=== PATIENT | female | born 1965 | race Caucasian/White ===

== ENCOUNTER → 2024-04-06 10:58 | Outpatient (REF) | payer OTHER, SELFPAY | LOC: HWRAD 10:58 | PROVIDERS: ATTENDING PHYSICIAN Family Medicine | DX: N95.1 Menopausal and female climacteric states (principal) | CPT/HCPCS: 77080 ==

== ENCOUNTER → 2024-08-23 15:40 | Outpatient (REF) | payer OTHER, SELFPAY | LOC: MRI 3T 15:40 | PROVIDERS: ATTENDING PHYSICIAN Family Medicine | DX: M79.671 Pain in right foot (principal) | CPT/HCPCS: 73720; A9575 ==

== ENCOUNTER → 2024-09-18 09:53 | Outpatient (REF) | payer OTHER, SELFPAY | LOC: DHSLP 09:53 | PROVIDERS: ATTENDING PHYSICIAN Internal Medicine; FAMILY PHYSICIAN Family Medicine | DX: G47.00 Insomnia, unspecified (principal); G47.8 Other sleep disorders; R06.83 Snoring | CPT/HCPCS: 95800 ==

== ENCOUNTER → 2025-03-06 13:13 | Outpatient (REF) | payer OTHER, SELFPAY | LOC: HWRAD 13:13 | PROVIDERS: ATTENDING PHYSICIAN Obstetrics & Gynecology; FAMILY PHYSICIAN Family Medicine | DX: N95.0 Postmenopausal bleeding (principal) | CPT/HCPCS: 76830; 76856 ==

== ENCOUNTER 2025-04-10 06:05 | Day surgery (SDC) | payer OTHER, SELFPAY ==
[2025-04-02 11:16] LABS: Hematocrit 38.3 % (37.0-47.0); Hemoglobin 13.2 g/dL (12.0-16.0); Mean Corp Hgb Conc. 34.5 g/dL (33.0-37.0); Mean Corpuscular Volume 89.5 fL (81.0-99.0); Nucleated Red Blood Cells % 0 %; Platelet Count 203 10^3/uL (130-400); Red Cell Dist. Width 12.0 % (11.5-14.5)
[2025-04-02 13:17] LABS: Blood Urea Nitrogen 17 mg/dl (7-17); Calcium 9.7 mg/dl (8.4-10.2); Carbon Dioxide 27 mmol/L (22-30); Chloride 106 mmol/L (98-107); Glucose 91 mg/dl (70-99); Potassium 4.7 mmol/L (3.5-5.1); Sodium 142 mmol/L (135-145); eGFR > 60.00
[2025-04-02 13:47] VITALS: BMI 25.9
[2025-04-10] VITALS (7 sets, daily range): BP systolic 100–132; BP diastolic 64–78; BMI 25.9
[2025-04-10] MEDS: TYLENOL 1000 MG PO (08:15)
[2025-04-10] MEDS: NEURONTIN 100 MG PO (08:15)
[2025-04-10] MEDS: NORMOSOL-R/PLASMALYTE-A 1000 IV (08:17)
--- NOTE | 2025-04-10 11:16 | W.IMMPOSTOP ---
Surgical Immed Post Op Note
-
Primary Surgeon: Melisa Vickers DO
Assisting Surgeon: none
Pre-op Diagnosis: Postmenopausal bleeding
Post-op Diagnosis: same
Procedure Performed: hysteroscopy D&C
Anesthesia Type: general LMA Dr Carrillo
Specimen / Cultures: 1. enodcervical curettings 2. endometrial curettings
Estimated Blood Loss: 10mL
Complications: small superficial abrasion of cervix from tenaculum which was sutured with figure of eight of 3-0 vicryl suture for hemostasis.
Operative Findings: Uterus sounded to approx 9.0 cm, bilateral tubal ostia seen. No evidence of polyp or mass. Normal atrophic appearing lining. Cervix ix located very anteriorly and positioned behind pubic bone.
Counts correct times 2.
== END 2025-04-10 12:45 | disposition home or self-care (01) ==
LOC: SDS 06:05
PROVIDERS: ATTENDING PHYSICIAN Obstetrics & Gynecology; FAMILY PHYSICIAN Family Medicine
DX: N95.0 Postmenopausal bleeding (principal)
CPT/HCPCS: 58558; 36415; 80048; 85025; 86850; 86900; 86901; 88305; 93005

== ENCOUNTER 2025-05-28 06:24 | Day surgery (SDC) | payer OTHER, SELFPAY | END 2025-05-28 12:16 | disposition home or self-care (01) | LOC: GI 06:24 | PROVIDERS: ATTENDING PHYSICIAN Internal Medicine; FAMILY PHYSICIAN Family Medicine | DX: Z12.11 Encounter for screening for malignant neoplasm of colon (principal); K64.8 Other hemorrhoids; K57.30 Diverticulosis of large intestine without perforation or abscess without bleeding; D12.0 Benign neoplasm of cecum; K62.1 Rectal polyp | CPT/HCPCS: 45385; 88305 ==

== ENCOUNTER → 2025-06-04 18:19 | Outpatient (REF) | payer OTHER, SELFPAY | LOC: MRI 18:19 | PROVIDERS: ATTENDING PHYSICIAN Obstetrics & Gynecology; FAMILY PHYSICIAN Family Medicine | DX: N95.0 Postmenopausal bleeding (principal) | CPT/HCPCS: 72197; A9575 ==

== ENCOUNTER 2025-08-16 06:27 | Day surgery (SDC) | payer OTHER, SELFPAY ==
[2025-08-06 10:49] LABS: Hematocrit 38.6 % (37.0-47.0); Hemoglobin 13.5 g/dL (12.0-16.0); Mean Corp Hgb Conc. 35.0 g/dL (33.0-37.0); Mean Corpuscular Volume 88.7 fL (81.0-99.0); Nucleated Red Blood Cells % 0 %; Platelet Count 222 10^3/uL (130-400); Red Cell Dist. Width 12.0 % (11.5-14.5)
[2025-08-06 13:09] LABS: Blood Urea Nitrogen 14 mg/dl (7-17); Calcium 9.6 mg/dl (8.4-10.2); Carbon Dioxide 30 mmol/L (22-30); Chloride 104 mmol/L (98-107); Glucose 99 mg/dl (70-99); Potassium 4.7 mmol/L (3.5-5.1); Sodium 139 mmol/L (135-145); eGFR > 60.00
[2025-08-06 13:24] VITALS: BMI 27.5
[2025-08-16] VITALS (20 sets, daily range): BP systolic 93–123; BP diastolic 54–86; BMI 27.5
[2025-08-16] MEDS: TYLENOL 1000 MG PO (12:09)
[2025-08-16] MEDS: NEURONTIN 300 MG PO (12:09)
[2025-08-16 12:24] LABS: Glucose - Point of Care 100 mg/dl (70-99)
[2025-08-16] MEDS: EMEND 40 MG PO (13:45)
--- NOTE | 2025-08-16 17:47 | W.IMMPOSTOP ---
Surgical Immed Post Op Note
-
Primary Surgeon: Melisa Vickers DO
Cable Testers Helper: PRICE Almeida
Pre-op Diagnosis: recurrent postmenopausal bleeding
Post-op Diagnosis: same; uterine-pelvic and abdominal adhesions
Procedure Performed: Robotic total laparoscopic hysterectomy, bilateral salpingo-oopherectomy, extensive lysis adhesions
Anesthesia Type: general ET Dr. Lindsay
Specimen / Cultures: uterus, cervix, bilateral fallopian tubes and ovaries.
Estimated Blood Loss: 10ml
Urine output: 200ml clear yellow urine.
Complications: none
Operative Findings: Omental adhesions to anterior abdominal wall. Uterus with adhesions to anterior abdominal wall, extending along entire uterus from fundus to cervix. Adhesions in lower uterine segment and bladder. Normal appearing uterus
otherwise. Normal appearing tubes and bilateral ovaries.
Counts correct times 2.
Stable to recovery room.
[2025-08-16 18:16] LABS: Urine Character Clear (Clear)
[2025-08-16] MEDS: TORADOL 15 MG IV ×2 (18:17→23:07)
[2025-08-16] MEDS: ZOFRAN 4 MG IV (18:24)
[2025-08-16 18:39] LABS: Urine Red Blood Cell 21-25 /HPF (0-2); Urine White Cell 30-40 /HPF (0-5)
[2025-08-16] MEDS: OFIRMEV 100 IV (19:44)
--- NOTE | 2025-08-16 22:18 | W.PN.UPDATE ---
Update Note
Progress Note Update
RAILROAD REPAIRER contacted me that Basia si shaky and nauseous and unable to go home. Will admit overnight for IVF and observation.
[2025-08-16] MEDS: NORMOSOL-R/PLASMALYTE-A 1000 IV (22:33)
[2025-08-16] MEDS: REGLAN 10 MG IV (23:07)
[2025-08-17] MEDS: ERYTHROMYCIN 0.5% OPHTHALMIC OINTMENT 1 APPLIC OPHTH (00:46)
[2025-08-17] MEDS: TORADOL 15 MG IV ×2 (05:53→11:17)
[2025-08-17] MEDS: NORMOSOL-R/PLASMALYTE-A 1000 IV (06:40)
[2025-08-17 07:25] VITALS: BP 96/56
[2025-08-17 07:29] LABS: Blood Urea Nitrogen 10 mg/dl (7-17); Carbon Dioxide 24 mmol/L (22-30); Chloride 102 mmol/L (98-107); Estimated Creatinine Clearance 92 ml/min; Potassium 4.2 mmol/L (3.5-5.1); Sodium 134 mmol/L (135-145)
[2025-08-17 08:03] LABS: Hematocrit 31.5 % (37.0-47.0); Hemoglobin 11.3 g/dL (12.0-16.0); Mean Corp Hgb Conc. 35.9 g/dL (33.0-37.0); Mean Corpuscular Volume 85.8 fL (81.0-99.0); Nucleated Red Blood Cells % 0 %; Platelet Count 195 10^3/uL (130-400); Red Cell Dist. Width 11.6 % (11.5-14.5)
[2025-08-17] MEDS: TYLENOL 650 MG PO (08:58)
--- NOTE | 2025-08-17 12:13 | W.PN.OBG.DWH ---
Today's Communication / Plan
-
discharge home.
Assessment/Plan
-
Postop day #1 s/p RA TLH bilateral oopherectomy
Doing well
Stable for dc home
Instructions reviewed.
RTO 2 wks
Subjective Data
-
Feeling much better. Nausea resolved. No vomiting. Tolerating regular diet.
Voiding without difficulty.
No active bleeding.
Objective Data
-
Laboratory Results
08/17/25 06:36
08/17/25 06:36
Vital Signs
Temp Pulse Resp BP Pulse Ox
98.2 F 67 16 96/56 96
08/17/25 07:25 08/17/25 07:25 08/17/25 07:25 08/17/25 07:25 08/17/25 07:25
VSS afeb
General: well- appearing, nontoxic
Cor regular rate
Abd: soft NDNT incisions clean, dry and intact.
Ext: no calf pain
--- NOTE | 2025-08-17 12:17 | W.DS.TRANS ---
DC Summary - Sterile Process Coordinator
-
Discharge Instructions:
Sleep Apnea Risk Low
Discharge Diagnosis/Procedures Postmenopausal bleeding s/p RA TLH bilateral
oopherectomy
Diet No restrictions
Activity No strenuous activity
Driving Restrictions No driving for 1 week
Bathing Restrictions OK to Shower
Instructions:
Stand-Alone Forms:
Changes to Home Medications: No
Discharge Medications:
DC Medications w/original date entered in [employer]
rosuvastatin 5 mg tablet 5 mg PO QPM High Cholesterol 07/08/23
vitamin B complex 1 tab PO DAILY Supplement 07/08/23
vitamin D3-vitamin K2 1 cap PO NOON 04/05/25
phenazopyridine 95 mg tablet 95 mg PO TID PRN pain 08/09/25
ibuprofen 600 mg tablet 600 mg PO Q4HPRN PRN mild cramps #0 tabs 08/17/25
Home Medication Changes
Pending Results: Yes
Additional Pending Results:
surgical pathology
Total time spent discharging patient (in min): 25
[2025-08-17 13:00] VITALS: BP 102/59
[2025-08-17] MEDS: NORMOSOL-R/PLASMALYTE-A IV (13:06)
--- NOTE | 2025-08-17 14:10 | CM ---
Met with patient at bedside
Outpatient form explained and signed
Pharmacy verified: [facility] @ [phone]
Lives w/ ; multilevel home; 2 steps to enter; 13 steps to 2nd floor; railing present; half bath 1st floor; full bath 2nd floor
PLOF: independent with ambulation, stairs, and ADLs; drives; works part time flexible clerk
No recent home health; no SNF utilization
will transport home
Plan: Discharge to home; no needs
== END 2025-08-17 14:05 | disposition home or self-care (01) ==
LOC: SDS 06:27
PROVIDERS: ATTENDING PHYSICIAN Obstetrics & Gynecology; FAMILY PHYSICIAN Family Medicine
DX: N95.0 Postmenopausal bleeding (principal); K66.0 Peritoneal adhesions (postprocedural) (postinfection); Z85.3 Personal history of malignant neoplasm of breast; D25.9 Leiomyoma of uterus, unspecified
CPT/HCPCS: 58571; 36415; 80048; 80051; 81003; 81015; 82565; 82962; 84520; 85025; 86850; 86900; 86901; 87086; 88307